=== PATIENT | male | born 2000 | race Caucasian/White ===

== ENCOUNTER 2020-01-11 13:39 | Emergency (ER) | payer BC, OTHER ==
[2020-01-12 19:52] LABS: SARS-CoV-2 MS2 Positive; SARS-CoV-2 N Gene Negative; SARS-CoV-2 S Gene Negative; SARS-CoV-2 orf1ab Negative
== END 2020-01-11 15:12 | disposition home or self-care (01) ==
LOC: ERS 13:39
DX: R05 Cough (principal); Z20.828 Contact with and (suspected) exposure to other viral communicable diseases; J45.909 Unspecified asthma, uncomplicated; F17.210 Nicotine dependence, cigarettes, uncomplicated; Z87.448 Personal history of other diseases of urinary system
CPT/HCPCS: 87635; 99283; U0003